=== PATIENT | male | born 1940 | race Caucasian/White ===

== ENCOUNTER 2018-01-27 09:53 | Inpatient (IN) ==
[~2018-01-27 09:53] MED LIST: ceFAZolin 1,000 MG, Sodium Chloride IRRigation 1,000 ML IR ONE
[2018-01-27] MEDS ORDERED: *HR* Propofol 200 MG/20 ML VIAL IVP ONE (10:01)
[2018-01-27] MEDS ORDERED: *HR* Rocuronium Bromide 50 MG/5 ML VIAL ONE (10:02)
[2018-01-27] MEDS ORDERED: Ondansetron 4 MG/2 ML VIAL ONE (10:02)
[2018-01-27] MEDS ORDERED: Lidocaine -MPF 2% 2 ML VIAL ONE (10:02)
[2018-01-27] MEDS ORDERED: Dexamethasone 4 MG/ML VIAL ONE (10:02)
[2018-01-27] MEDS ORDERED: *HR* FentaNYL (PF) 100 MCG/2 ML VIAL ONE (10:06)
[2018-01-27] MEDS ORDERED: *HR* Midazolam HCl 2 MG/2 ML VIAL ONE (10:06)
[2018-01-27] MEDS ORDERED: Clindamycin 900 MG/50 ML 900 MG/50 ML IV.SOLN IVPB ONE (10:28)
[2018-01-27] MEDS ORDERED: Ringers Solution, Lactated 1,000 ML IVC SCH (10:30)
[2018-01-27] MEDS ORDERED: Albuterol 2.5 MG/3 ML NEBULIZER IH ONE (10:30)
--- NOTE | 2018-01-27 10:46 | Anesthesia Evaluation PreOp ---
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 THR, Dental extraction) Alcohol Use: none Drug use: none Medications and Allergies 3 Allergy/AdvReac Type Severity Reaction Status Date / Time Penicillins [PCN] Allergy Swelling Verified 01/27/18 10:28 of Lip/Tongue/Throat Sulfa (Sulfonamide Allergy See Verified 01/27/18 10:28 Antibiotics) Comments - Meds/Allergy Pre-op Review Medications Reviewed: Yes Allergies Reviewed: Yes Beta Blockers on Current Med List: No Anesthesia Results - Labs Echo with Saline Contrast Name: Trung Cam Date of Study: 01/02/2018 Impressions: LVEF 60%. Mild left ventricular diastolic dysfunction. Normal right ventricular structure and function. Mild-moderate mitral regurgitation. Mild pulmonic regurgitation. No pulmonary hypertension. There is a PFO by agitated saline contrast. Laboratory Tests 01/23/18 01/23/18 01/23/18 08:49 08:49 08:49 WBC 4.2 L Hgb 15.0 Hct 44.4 Plt Count 151 INR 1.0 Sodium 138 Potassium 3.8 Chloride 101 Carbon Dioxide 33 H BUN 16 Creatinine 0.88 Test Date: 2018-01-02 Pat Name: Trung Cam Baseline ECG demonstrates: Totals: There were 107597 total beats, including ectopy. Average HR was 68. Minimum HR of 48 BPM occurred at 01:16D2 and maximum HR of 125 BPM occurred at 06:46D3. Ventricular Ectopy consisted [place] 60596 total beats averaging 289.3 beats per hour, 34 paired PVCs. There were 86521 single PVCs. 111 episodes of bigeminy, and 1402 beats of trigeminy. There were 0 runs of non-sustained VT. Supraventricular Ectopy consisted of 39 total beats averaging 0.8 per hour. There were 37 single PACs, 2 paired PACs, and 0 runs of SVT. IMPRESSION: Underlying rhythm is normal sinus. Frequent ventricular ectopy averaging 289 beats per hour. Occasional supraventricular ectopy. No symptoms reported. 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
[2018-01-27] MEDS ORDERED: Heparin 1,000 UNITS/500 mL 500 ML ONE (11:28)
[2018-01-27] MEDS ORDERED: Heparin 1,000 UNITS/500 mL 1,000 ML ONE (11:30)
[2018-01-27] MEDS ORDERED: Lidocaine 1% 20 ML MDV ONE (11:30)
--- NOTE | 2018-01-27 11:30 | History & Physical Report ---
Date of Encounter: 01/27/18 Time of Encounter: 11:15 24 Hour HP Update - Instructions Instructions: If the History and Physical is less than 30 days old and was completed prior to A.M. admission and or procedure and has NOT been updated on calendar day of procedure please complete this update prior to performing procedure. - Update Patient reports changes in Medical Condition: No Changes in examination, assessment, or condition: No Changes in Medication: No Preop tests/diagnostics Reviewed: Yes Surgery Remains Indicated: Yes Consent for Planned Operative Procedure(s) Verified: Yes - Pre-Operative Checklist Preoperative Checklist Indicated: Yes Prophylactic Antibiotic Ordered: Yes Home Medications Include Beta Jeaneth: No Beta Jeaneth Taken Today (Day of Surgery): No Beta Jeaneth Taken Yesterday (Day Prior to Surgery): No Is VTE Prophylaxis Indicated?: Yes
[2018-01-27] MEDS ORDERED: NiCARdipine 2.5 MG/10 ML Syringe IVPB ONE (11:39)
[2018-01-27] MEDS ORDERED: *HR* Magnesium Sulfate 1 GM/2 ML VIAL ONE (12:00)
[2018-01-27] MEDS ORDERED: *HR* Heparin 5,000 UNIT/ML VIAL ONE (12:38)
[2018-01-27] MEDS ORDERED: *HR* OxyCODONE Immed Rel 5 MG TABLET PO PRN ×2 (12:52→16:30)
[2018-01-27] MEDS ORDERED: Naloxone 0.4 MG/ML INJ IVP PRN ×2 (12:52→16:30)
[2018-01-27] MEDS ORDERED: *HR* Promethazine 25 MG/ML VIAL IVP PRN (12:52)
[2018-01-27] MEDS ORDERED: *HR* Labetalol 20 MG/4 ML SYRINGE IVP PRN ×2 (12:52→16:30)
[2018-01-27] MEDS ORDERED: Acetaminophen IV 1,000 MG/100 ML INFUS..BTL ONE (13:13)
[2018-01-27] MEDS ORDERED: Lidocaine -MPF 0.5% 50 ML VIAL ONE (13:59)
[2018-01-27] MEDS ORDERED: *HR* Labetalol 100 MG/20 ML MDV ONE (14:19)
[2018-01-27] MEDS ORDERED: Neostigmine Methylsulfate 3 MG/3 ML SYRINGE ONE (15:00)
--- NOTE | 2018-01-27 15:21 | Operative Note ---
Date of procedure: 01/27/18 Pre-op diagnosis: left carotid stenosis and cva Post-op diagnosis: same Procedure: left carotid endarterectomy with 8 Fr shunt and bovine patch angioplasty Anesthesia: GETA Surgeon: Michael Adrian Was there an talent acquisition assistant present: No Estimated blood loss (cc): 150 Specimen: none Condition: stable Disposition: PACU Procedure in Detail: History Trung Cam is a 77-year-old white male who was found to have a stroke. This was confirmed on brain imaging. Duplex scan had demonstrated significant carotid stenosis. A CT angiograms obtained which showed a high-grade and complex lesion of the left internal carotid artery. The patient now comes to the operating room for correction of this carotid lesion. Procedure After informed consent was obtained the patient was taken to the operating room. An arterial line was placed. General endotracheal anesthesia was established. The left neck was then sterilely prepped and draped. A timeout protocol was observed. An oblique incision was made parallel to the anterior border of the sternocleidomastoid muscle. Dissection was carried down to the carotid sheath which was then opened. The patient did have significant palpable lymphadenopathy in the anterior jugular chain. Dissection was then made of the carotid artery. There was significant amount of fibrinous material around the artery. There is also an unusual orientation of the superior thyroid artery which was oriented posterolaterally. This artery needed to be divided in order to open up and expose the carotid bifurcation. The carotid bifurcation was relatively high in the neck which also led to a more tedious dissection. Once this was achieved the vagus nerve and hypoglossal nerve were identified and preserved during this dissection and during the operation. Heparin was given in a dose of 5000 units intravenously. After 3 minute delay the vessels were clamped with the internal carotid artery clamped first. Using an 11 blade knife and Ramesh scissors the artery was opened. An 8-Croatian shunt was then inserted atraumatically. Patency of the shunt was confirmed by the use of intraoperative Doppler. Inspection of the plaque revealed a very thick plaque throughout the carotid system with extension both proximally and distally above the area of the arteriotomy. There was also loose material identified in the lumen of the proximal left internal carotid artery. The endarterectomy was then begun at the distal common carotid artery. The dissection was carried circumferentially to lift the plaque and then was carried proximally and distally. The arteriotomy needed to be extended proximally due to the extent of the plaque in the proximal direction. Once this was achieved the end point at the proximal area was smooth. The external carotid artery orifice was also endarterectomized. There was a significant ends and calcific plaque at this location. The endarterectomy was then continued up on into the internal carotid artery. Very thick posterior based plaque present. After this was removed the bed of the vessel was inspected for any residual plaque. The area was copiously flushed with heparinized saline. A bovine pericardial patch was then performed. This was sewn into position using 2 6-0 Prolene sutures. Leaving a small space open on the suture line the shunt was clamped divided and removed. The final few sutures were then placed. The external and common carotid arteries were allowed to back flush and reclamped. The common and external were then opened and then finally the internal was reopened. There was no hemodynamic distress with this maneuver. Excellent pulsations were identified by palpation and with Doppler signal throughout the carotid system. A superficial cervical block using half percent Marcaine was performed. The wound was then irrigated with antibiotic containing solution. The left neck incision was then closed In layers using absorbable suture. There were no intraoperative complications. The patient tolerated the procedure well. The patient was extubated in the operating room. He was found to be neurologically intact. He was then transported to the recovery room in stable condition.
--- NOTE | 2018-01-27 15:48 | Anesthesia Evaluation Post Op ---
Date of Encounter: 01/27/18 Time of Encounter: 15:47 - Vital Signs Vital Signs: Vital Signs/O2 Sat, Most Current Temp Pulse Resp BP Pulse Ox 98.9 F 61 15 107/52 97 01/27/18 15:22 01/27/18 15:42 01/27/18 15:42 01/27/18 15:42 01/27/18 15:42 - Lungs Lungs: Clear Ascult./Percussion - Airway Airway: Non-obstructed - Mental Status Mental Status: Alert & Oriented, Answers Appropriately - Pain Pain Scale: 0 Pain Scale used: Numeric (1 - 10) - Nausea Vomiting Nausea Vomiting: Not Present - Hydration Hydration: Ice chips, Caba catheter - Discharge PostOp Status: Transfer Patient to floor
[2018-01-27] MEDS ORDERED: Ondansetron 4 MG/2 ML VIAL IVP PRN (16:30)
[2018-01-27] MEDS ORDERED: traMADol 50 MG TABLET PO PRN (16:30)
[2018-01-27] MEDS ORDERED: Acetaminophen 325 MG TABLET PO PRN (16:30)
[2018-01-28] MEDS: *HR* Metformin 500 MG TABLET PO SCH ×2 (00:14→08:03)
[2018-01-28 04:27] LABS: Basophils % 0.1 %; Eosinophils % 0.1 %; Hematocrit 35.3 % (37.5-50.1); Immature Granulocytes % 0.2 % (0-4); Lymphocytes # 1.4 K/mcL (0.6-4.6); Mean Corpuscular HGB Conc 33.7 g/dL (31.6-35.5); Mean Corpuscular Hemoglobin 29.5 pg (28.0-33.3); Mean Corpuscular Volume 87.4 fL (83.0-100.0); Mean Platelet Volume 10.6 fL (9.4-12.4); Monocytes # 0.6 K/mcL (0.0-1.3); Monocytes % 7.9 %; Platelet Count 130 K/mcL (140-400); Red Blood Count 4.04 M/mcL (4.19-5.50); Red Cell Distribution Width 13.2 % (11.5-14.5); Segmented Neutrophils % 74.7 %
[2018-01-28 04:32] LABS: Hemoglobin 11.9 g/dL (12.9-16.9); Neutrophils # 6.1 K/mcL (1.6-8.9)
[2018-01-28 04:49] LABS: BUN/Creatinine Ratio 19 (6-26); Blood Urea Nitrogen 15 mg/dL (8-23); Carbon Dioxide 29 mEq/L (23-29); Chloride 101 mEq/L (98-107); Glucose 148 mg/dL (70-105); Osmolality,Calculated 286 (280-300); Potassium 4.6 mEq/L (3.5-5.1); Sodium 136 mEq/L (136-145); eGFR For African Americans > 60 (> 60); eGFR For Non-African Americans > 60 (> 60)
[2018-01-28] MEDS ORDERED: (Omega-3/Dha/Epa/Fish Oil [Fish Oil 1,000 Mg Softgel]) PO SCH (09:00)
[2018-01-28] MEDS ORDERED: hydroCHLOROthiazide 25 MG TABLET PO SCH (09:00)
[2018-01-28] MEDS ORDERED: amLODIPine 5 MG TABLET PO SCH (09:00)
[2018-01-28] MEDS ORDERED: Multivit/Ca/Min/Fe/FA 1 TAB TABLET PO SCH (09:00)
[2018-01-28 11:20] VITALS: BP 101/52
--- NOTE | 2018-01-28 13:03 | Discharge Summary ---
Date of Encounter: 01/28/18 Time of Encounter: 13:01 - Discharge Diagnosis (1) Carotid stenosis Priority: Primary Status: Acute Comments: Patient has high-grade stenosis of left internal carotid artery. Patient has left-sided stroke. Patient was admitted and taken to surgery for this high- grade lesion. Qualifiers: Laterality: bilateral Qualified Code(s): I65.23 - Occlusion and stenosis of bilateral carotid arteries (2) CVA (cerebral vascular accident) Priority: Secondary Status: Chronic Comments: History of left-sided stroke. Qualifiers: CVA mechanism: unspecified Qualified Code(s): I63.9 - Cerebral infarction, unspecified (3) Hypertension Priority: Secondary Status: Chronic Comments: History of hypertension Qualifiers: Hypertension type: essential hypertension Qualified Code(s): I10 - Essential (primary) hypertension (4) Diabetes Priority: Secondary Status: Acute Comments: History of diabetes Qualifiers: Diabetes mellitus type: type 2 Diabetes mellitus nursing home insulin use: without nursing home use Diabetes mellitus complication status: with neurologic complications Diabetes mellitus complication detail: with other neurological complication Qualified Code(s): E11.49 - Type 2 diabetes mellitus with other diabetic neurological complication - Hospital Course Hospital course: Mr. Cam is a 77 year old male With a history of left sided stroke. CT Angiogram demonstrated a high-grade left carotid stenosis. Patient was admitted and underwent a left carotid endarterectomy. The patient did well following surgery. He was neurologically intact. He was felt fit for discharge on the afternoon of postoperative day # 1. Postoperative wound care was reviewed with the patient prior to discharge. - Time Spent with Patient Total time spent providing and/or coordinating discharge services: - Discharge Medications Home Medications: Cinnamon Bark [Cinnamon] 1,000 mg PO DAILY 01/27/18 [History] Clopidogrel [Plavix] 75 mg PO DAILY 01/27/18 [History] Losartan Potassium [Cozaar] 100 mg PO DAILY 01/27/18 [History] Metformin HCl [Metformin HCl ER] 1,000 mg PO BID 01/27/18 [History] Multivitamin [One Daily Multivitamin] 1 tab PO DAILY 01/27/18 [History] [place]-3/Dha/Epa/Fish Oil [Fish Oil 1,000 mg Softgel] 1 cap PO DAILY 01/27/18 [ History] amLODIPine [Norvasc] 5 mg PO DAILY 01/27/18 [History] hydroCHLOROthiazide [Hydrochlorothiazide] 25 mg PO DAILY 01/27/18 [History] Allergies/Adverse Reactions: 3 Allergy/AdvReac Type Severity Reaction Status Date / Time Penicillins [PCN] Allergy Swelling Verified 01/27/18 11:44 of Lip/Tongue/Throat Sulfa (Sulfonamide Allergy See Verified 01/27/18 11:44 Antibiotics) Comments Date of admission: 01/27/18 16:09 Primary care physician: Ramon Davis MD Consults: None Procedure(s) Performed: Left carotid endarterectomy Discharging clinician: Michael Adrian Anticipated date of discharge: 01/28/18 Exam Vital Signs, Last 4 Hours Temp Pulse Resp BP Pulse Ox 01/28/18 11:55 58 01/28/18 11:19 98.1 F 59 18 101/52 96 General: Present: Conversant, No Apparent Distress HEENT: Present: Atraumatic, Normocephaly Neck: Absent: JVD Cardiac: Present: Reg Rate and Rhythm Lungs: Present: Normal Breath Sounds Neuro: Present: Alert and responsive, No focal deficits noted, Cranial nerves grossly intact, Motor nerves grossly intact, Sensory nerves grossly intact Vascular: Present: Surgical incisions (Left neck incision is clean and dry.) - Patient Status Disposition: Home, Self-Care Condition: Good Functional capacity at discharge: independent ambulation Overall status at discharge: patient is progressing back to baseline - Discharge Instructions Follow Up With: Ramon Davis MD [Primary Care Provider] - 02/02/18 3:30 pm Michael Adrian MD [Partnered Physician] - 02/11/18 10:45 am Additional Instructions: Keep left neck incision dry for a total of 5 days following surgery No lifting greater than 10 pounds No automobile driving Patient may ambulate inside and outside as tolerated Resume usual home medications Use ice pack on the left neck for 2 days. Using incentive spirometer for 2 weeks at home to breathe 10 times an hour while awake. - Diet and Activity Activity: increase activity as tolerated Diet: advance to your usual diet - VTE Documentation of Mechanical Device: Intermittent pneumatic compression device
== END 2018-01-28 14:00 | disposition home or self-care (01) | DRG 39 ==
LOC: SAMDAY 09:53 → 2NNU 16:09
PROVIDERS: ADMIT Surgery Vascular Surgery; ATTEND Surgery Vascular Surgery